=== PATIENT | female | born 1985 | race Hispanic/Latino ===

== ENCOUNTER 2024-12-28 18:28 | Inpatient (IN) | payer OTHER ==
[~2024-12-28] VITALS: Ht 147.3 cm; Wt 61.7 kg
[2024-12-28 19:08] LABS: BASOPHILS % 0.3 % (0.0-1.0); EOSINOPHILS % 0.7 % (0.0-6.0); LYMPHOCYTES % 14.0 % (18.0-39.1); MONOCYTES % 7.6 % (4.4-11.3); NEUTROPHILS % 75.9 % (38.7-80.0); RED CELL DISTRIBUTION WIDTH 13.5 % (11.7-14.4)
[2024-12-28] MEDS: SODIUM CHLORIDE 0.9% 1000ML 1,000 ML IV ONE (19:11)
[2024-12-28] MEDS: ONDANSETRON HCL INJ 2MG/ML 2ML 2 MG/ML VIAL IV STA (19:11)
[2024-12-28] MEDS: Morphine 4mg INJECTION 4 MG/ML INJ IV ONE (19:11)
[2024-12-28 19:29] LABS: EST GLOMERULAR FILTRATION RATE 110.0 ML/MIN (>=60)
[2024-12-28 19:52] LABS: LEUKOCYTE ESTERASE ,URINE NEGATIVE (NEGATIVE); PROTEIN,URINE DIPSTICK NEGATIVE (NEGATIVE); URINE UROBILINOGEN 0.2 mg/dL (0.2 - 1)
[2024-12-28] MEDS: CEFTRIAXONE 2 GM in SODIUM CHLORIDE 0.9% 100 ML IV ONE (19:55)
[2024-12-28] MEDS: POTASSIUM CHLORIDE 20 MEQ TAB CR PO ONE (19:55)
[2024-12-28] MEDS ORDERED: SODIUM CHLORIDE 0.9% 100 ML ONE (19:57)
[2024-12-28] MEDS ORDERED: IOPAMIDOL 370 MG/ML 100 ML INFUS..BTL INJ ONE (19:57)
[2024-12-28 20:00] LABS: AMPHETAMINES SCREEN,URINE NEGATIVE (NEGATIVE); CANNABINOIDS SCREEN,URINE NEGATIVE (NEGATIVE); COCAINE SCREEN,URINE NEGATIVE (NEGATIVE); METHADONE SCREEN, URINE NEGATIVE (NEGATIVE); OPIATES SCREEN,URINE POSITIVE (NEGATIVE)
[2024-12-28 20:14] LABS: EPITHELIAL CELLS,URINE MODERATE /LPF
[2024-12-28 20:47] LABS: BAND NEUTROPHILS % (MANUAL) 1 %; EOSINOPHILS % (MANUAL) 1 % (0-7); LYMPHOCYTES % (MANUAL) 13 % (19-48); MONOCYTES % (MANUAL) 9 % (3.4-9.0); MYELOCYTES % (MANUAL) 1 % (0-0); NEUTROPHILS % (MANUAL) 75 % (40-74)
[2024-12-28 20:49] LABS: PLATELET ESTIMATE MODERATELY INCREASED; PLATELET MORPHOLOGY COMMENT NORMAL; RBC MORPHOLOGY COMMENT NORMAL
[2024-12-28] MEDS: METOPROLOL TARTRATE 25 MG TAB PO ONE (23:07)
[2024-12-28] MEDS: SODIUM CHLORIDE 0.9% 1000ML 1,000 ML IV SCH (23:08)
[2024-12-28 23:45] VITALS: PULSE 89; RESP 16; O2SAT 98
[2024-12-29] VITALS (18 sets, daily range): BP systolic 128–154; BP diastolic 80–109; PULSE 85–132; RESP 12–24; TEMP 97.4–99.1; O2SAT 93–100
[2024-12-29] MEDS: Morphine 4mg INJECTION 4 MG/ML INJ IV PRN (00:04)
[2024-12-29] MEDS ORDERED: ZYRTEC10 M3 PO (01:59)
[2024-12-29 05:19] LABS: BASOPHILS % 0.3 % (0.0-1.0); EOSINOPHILS % 0.9 % (0.0-6.0); LYMPHOCYTES % 16.1 % (18.0-39.1); MONOCYTES % 7.1 % (4.4-11.3); NEUTROPHILS % 74.7 % (38.7-80.0); RED CELL DISTRIBUTION WIDTH 14.0 % (11.7-14.4)
[2024-12-29 05:52] LABS: EST GLOMERULAR FILTRATION RATE 115.0 ML/MIN (>=60)
[2024-12-29] MEDS: METOPROLOL TARTRATE 25 MG TAB PO SCH (09:52)
[2024-12-29] MEDS: ONDANSETRON HCL INJ 2MG/ML 2ML 2 MG/ML VIAL IV PRN (09:58)
[2024-12-29 10:25] LABS: LYMPHOCYTES % (MANUAL) 13 % (19-48); MONOCYTES % (MANUAL) 6 % (3.4-9.0); NEUTROPHILS % (MANUAL) 81 % (40-74); PLATELET ESTIMATE SLIGHTLY INCREASED; PLATELET MORPHOLOGY COMMENT NORMAL; RBC MORPHOLOGY COMMENT NORMAL
[2024-12-29] MEDS ORDERED: HYDRALAZINE HCL 20 MG/ML VIAL IV PRN (17:45)
[2024-12-30 03:21] VITALS: BP 150/97; PULSE 122; RESP 18; TEMP 97.6; O2SAT 96
[2024-12-30 08:20] VITALS: BP 138/94; PULSE 110; RESP 18; TEMP 98.2; O2SAT 98
[2024-12-30 09:00] VITALS: BP 138/94; PULSE 110; RESP 18; TEMP 98.2; O2SAT 98
[2024-12-30 11:00] VITALS: BP 115/78; PULSE 64; RESP 18; TEMP 98.1; O2SAT 100
[2024-12-30 16:15] VITALS: BP 147/98; PULSE 93; RESP 20; TEMP 97.4; O2SAT 100
[2024-12-30] MEDS: METOPROLOL TARTRATE 25 MG TAB PO SCH (17:41)
[2024-12-30 20:00] VITALS: BP_SYST 147; BP_SYST 160; BP_DIAS 100; BP_DIAS 99; PULSE 116; RESP 20; RESP 22; TEMP 98; TEMP 98.1; O2SAT 94; O2SAT 95
[2024-12-30] MEDS ORDERED: NALOXONE HCL INJ 0.4 MG/ML AMP IV PRN (20:00)
[2024-12-30] MEDS: HYDROMORPHONE 1MG/1ML INJ IV PRN (20:36)
[2024-12-31] VITALS (9 sets, daily range): BP systolic 109–149; BP diastolic 79–103; PULSE 89–120; RESP 17–19; TEMP 97.6–98.6; O2SAT 98–100
[2024-12-31 06:00] LABS: BASOPHILS % 0.3 % (0.0-1.0); EOSINOPHILS % 0.9 % (0.0-6.0); LYMPHOCYTES % 22.2 % (18.0-39.1); MONOCYTES % 5.7 % (4.4-11.3); NEUTROPHILS % 69.9 % (38.7-80.0); RED CELL DISTRIBUTION WIDTH 13.9 % (11.7-14.4)
[2024-12-31 06:22] LABS: EST GLOMERULAR FILTRATION RATE 110 ML/MIN (>=60)
[2024-12-31] MEDS: LISINOPRIL 2.5 MG TAB PO SCH (10:53)
[2025-01-01] VITALS (7 sets, daily range): BP systolic 121–172; BP diastolic 90–116; PULSE 95–117; RESP 17–22; TEMP 97.8–99.5; O2SAT 97–100
[2025-01-01] MEDS: METOPROLOL TARTRATE INJ 1 MG/ML VIAL IV PRN (23:54)
[2025-01-02 03:15] VITALS: BP 119/84; PULSE 108; RESP 18; TEMP 97.5; O2SAT 100
[2025-01-02 06:11] LABS: BASOPHILS % 0.1 % (0.0-1.0); EOSINOPHILS % 0.0 % (0.0-6.0); LYMPHOCYTES % 18.1 % (18.0-39.1); MONOCYTES % 8.3 % (4.4-11.3); NEUTROPHILS % 72.9 % (38.7-80.0); RED CELL DISTRIBUTION WIDTH 13.5 % (11.7-14.4)
[2025-01-02 06:56] LABS: EST GLOMERULAR FILTRATION RATE 116.0 ML/MIN (>=60)
[2025-01-02 09:06] VITALS: BP 125/87; PULSE 94; RESP 19; TEMP 97.9; O2SAT 100
[2025-01-02 11:20] LABS: LYMPHOCYTES % (MANUAL) 21 % (19-48); MONOCYTES % (MANUAL) 6 % (3.4-9.0); NEUTROPHILS % (MANUAL) 73 % (40-74)
[2025-01-02 11:21] LABS: PLATELET ESTIMATE ADEQUATE; PLATELET MORPHOLOGY COMMENT NORMAL
[2025-01-02 12:00] VITALS: BP 116/76; PULSE 82; RESP 19; TEMP 98.4; O2SAT 100
== END 2025-01-02 13:30 | disposition home or self-care (01) | DRG 309 ==
LOC: ER 18:35 → ERHOLD 22:11 → ICU 12-29 01:30 → MED/SURG2 12-29 16:10
PROVIDERS: ADMIT Internal Medicine; ATTEND Internal Medicine
DX: R00.0 Tachycardia, unspecified (principal); R65.10 Systemic inflammatory response syndrome (SIRS) of non-infectious origin without acute organ dysfunction; M54.9 Dorsalgia, unspecified; D72.829 Elevated white blood cell count, unspecified; I10 Essential (primary) hypertension; M79.605 Pain in left leg; D75.839 Thrombocytosis, unspecified; F41.9 Anxiety disorder, unspecified
CPT/HCPCS: 36415; 71275; 72146; 72148; 74174; 76700; 80048; 80053; 80307; 81001; 82550; 83605; 84484; 84702; 85025; 87040; 87086; 93005; 93971; 94799; 99284; J0696; J1171; J2270; J2405; J7030; J7050; Q9967